=== PATIENT | male | born 1985 | race Caucasian/White ===

== ENCOUNTER 2019-07-10 13:02 | Emergency (ER) | payer SELFPAY ==
[~2019-07-10] VITALS: Ht 170.2 cm; Wt 72.7 kg
[2019-07-10] MEDS ORDERED: LIDOCAINE/PF 1% 5 ML VIAL INJ ONE (13:30)
[2019-07-10] MEDS ORDERED: BACITRACIN 0.9 GM PACKET OINTMENT TP ONE (13:30)
[2019-07-10 14:26] VITALS: BP 131/77
== END 2019-07-10 14:46 | disposition home or self-care (01) ==
LOC: EMS 13:03
DX: S61.012A Laceration without foreign body of left thumb without damage to nail, initial encounter (principal); W45.8XXA Other foreign body or object entering through skin, initial encounter; Y93.89 Activity, other specified; Y92.69 Other specified industrial and construction area as the place of occurrence of the external cause; Y99.0 Civilian activity done for income or pay
CPT/HCPCS: 12001; 99283; J2001

== ENCOUNTER 2020-06-21 17:24 | Emergency (ER) | payer MEDICAID ==
[~2020-06-21] VITALS: Ht 165.1 cm; Wt 68.2 kg
[2020-06-21] MEDS ORDERED: LIDOCAINE 1% 10 ML VIAL INJ ONE (17:45)
[2020-06-21] MEDS ORDERED: BACITRACIN 0.9 GM PACKET OINTMENT TP ONE (17:45)
[2020-06-21 19:16] VITALS: BP 149/90
== END 2020-06-21 19:22 | disposition home or self-care (01) ==
LOC: EMS 17:29
DX: S01.21XA Laceration without foreign body of nose, initial encounter (principal); W01.10XA Fall on same level from slipping, tripping and stumbling with subsequent striking against unspecified object, initial encounter; Y93.89 Activity, other specified; Y92.89 Other specified places as the place of occurrence of the external cause; Y99.8 Other external cause status
CPT/HCPCS: 12011; 70160; 93005; 99283; J3490